=== PATIENT | female | born 1955 | race Two or more races ===

== ENCOUNTER → 2024-03-07 | Emergency (ER) | payer OTHER ==
[~2024-03-07] VITALS: Ht 160 cm; Wt 64.9 kg
[~2024-03-07] MED LIST: EZALLOR SPRINKLE5 MG; MICARDIS80 MG; NABUMETONE500 MG PO; ZITHROMAX500 MG PO
== END | disposition left against medical advice (07) ==
LOC: ER 22:35
DX: Z53.21 Procedure and treatment not carried out due to patient leaving prior to being seen by health care provider (principal)